=== PATIENT | male | born 1955 | race Caucasian/White ===

== ENCOUNTER 2019-04-26 07:43 | Day surgery (SDC) | payer BC ==
[~2019-04-26] VITALS: Ht 180.3 cm; Wt 97.6 kg
[~2019-04-26 07:43] MED LIST: ASPI325 PO; ATEN25; Aspirin EC81 MG PO; Cinnamon500 MG PO; EFFIENT10 MG PO; Glucotrol10 MG PO; LOVA40 PO; METO25ER PO; METO50ER PO; OLME20; OLME20 PO; OLME5TAB PO; PIOG15; PIOG45 PO; TORSE20 PO; TRULICITY0.75 MG/0. SQ; Travatan Z5 ML BOTHEYES; janumet
[2019-04-26] MEDS ORDERED: CLOP75 (08:21)
== END 2019-04-26 10:08 | disposition home or self-care (01) ==
LOC: ORSCSDS 07:43
PROVIDERS: Internal Medicine Gastroenterology
PROC: 0DBL8ZX Excision of Transverse Colon, Via Natural or Artificial Opening Endoscopic, Diagnostic (ICD-10-PCS; principal; 2019-04-26 09:00)
DX: Z12.11 Encounter for screening for malignant neoplasm of colon (principal); Z86.010 Personal history of colon polyps; D12.3 Benign neoplasm of transverse colon; K57.30 Diverticulosis of large intestine without perforation or abscess without bleeding; K64.8 Other hemorrhoids; I10 Essential (primary) hypertension; E11.9 Type 2 diabetes mellitus without complications; Z79.899 Other long term (current) drug therapy; Z79.82 Long term (current) use of aspirin
CPT/HCPCS: 82947; 88305; J2405; J2704; J7120

== ENCOUNTER → 2019-11-12 | Outpatient (CLI) | payer BC, OTHER ==
[~2019-11-12] MED LIST changes: +CLOP75
== END | disposition home or self-care (01) ==
LOC: LAB 06:05 → LAB SHORT 06:05
DX: Z01.812 Encounter for preprocedural laboratory examination (principal); Z11.59 Encounter for screening for other viral diseases
CPT/HCPCS: U0002

== ENCOUNTER → 2021-05-24 | Outpatient (CLI) | payer BC | END | disposition home or self-care (01) | LOC: LAB SHORT 11:22 | DX: D23.5 Other benign neoplasm of skin of trunk (principal) | CPT/HCPCS: 88305 ==

== ENCOUNTER 2022-06-03 07:21 | Observation (INO) | payer BC ==
[~2022-06-03] VITALS: Ht 180.3 cm; Wt 117.0 kg
[~2022-06-03 07:21] MED LIST changes: -Aspirin EC81 MG PO; -CLOP75; -Glucotrol10 MG PO; -OLME5TAB PO; -PIOG45 PO; -TORSE20 PO; -TRULICITY0.75 MG/0. SQ
[2022-06-03 07:55] LABS: BASOPHILS ABSOLUTE AUTO 0.06 K/mm3 (0.00-0.23); BASOPHILS PERCENT AUTO 1 % (0-2); EOSINOPHILS ABSOLUTE AUTO 0.07 K/mm3 (0.00-0.68); EOSINOPHILS PERCENT AUTO 1 % (0-6); Hematocrit 43.5 % (37.0-53.0); Hemoglobin 15.6 g/dL (13.5-17.5); IMMATURE GRAN ABSOLUTE AUTO 0.01 K/mm3 (0.00-0.10); IMMATURE GRAN PERCENT AUTO 0 % (0-1); LYMPHOCYTES ABSOLUTE AUTO 1.29 K/mm3 (0.84-5.20); LYMPHOCYTES PERCENT AUTO 24 % (21-46); MONOCYTES ABSOLUTE AUTO 0.37 K/mm3 (0.16-1.47); MONOCYTES PERCENT AUTO 7 % (4-13); Mean Corpuscular HGB 32.1 pg (26.0-34.0); Mean Corpuscular HGB Conc 35.9 g/dL (31.5-36.5); Mean Corpuscular Volume 90 fL (80-100); Mean Platelet Volume 9.7 fL (9.1-12.4); NEUTROPHILS ABSOLUTE AUTO 3.66 K/mm3 (1.96-9.15); NEUTROPHILS PERCENT AUTO 67 % (41-73); Platelet Count 172 K/mm3 (150-400); RDW Coefficient Variation 11.9 % (11.7-14.2); Red Blood Cell Count 4.86 M/mm3 (4.30-5.90); White Blood Cell Count 5.46 K/mm3 (4.00-11.30)
[2022-06-03 08:14] LABS: Albumin, Blood 3.5 g/dL (3.4-5.0); Albumin/Globulin Ratio 0.9 (0.8-1.8); Bilirubin, Total 0.8 mg/dL (0.1-1.0); Bun/Creatinine Ratio 17.6 (12.0-20.0); Calcium, Blood 8.9 mg/dL (8.5-10.1); Creatinine, Blood 1.48 mg/dL (0.60-1.20); Globulin, Blood 3.7 g/dL (2.2-4.0); Potassium, Blood 5.7 mmol/L (3.5-5.5); Total Protein, Blood 7.2 g/dL (6.4-8.2)
[2022-06-03] MEDS ORDERED: OLME20 PO (18:52)
[2022-06-03] MEDS ORDERED: TRULICITY0.75 MG/01 SC (18:52)
[2022-06-03] MEDS ORDERED: CLOP75 PO (18:53)
[2022-06-03] MEDS ORDERED: PIOG45 PO (18:53)
[2022-06-03] MEDS ORDERED: ROSUVASTATIN CAL5 MG PO (18:53)
[2022-06-03] MEDS ORDERED: GLIP5 PO (18:53)
[2022-06-03] MEDS ORDERED: TORSE20 PO (18:54)
[2022-06-03] MEDS ORDERED: Aspirin EC81 MG PO (18:54)
--- NOTE | 2022-06-03 19:11 | NUR ---
LATE ENTRY/ED ADMIT 1744: RECEIVED REPORT FROM ED RN. 1814: RECEIVED PT FROM ER TO ROOM 324. PLACED IN BED, MADE COMFORTABLE, ORIENTED TO ROOM AND UNIT ROUTINE. DR. CROSS HERE TO S/W PT. CALL LIGHT WITHIHN REACH. PT A&O X 4, PLEASANT & COOPERATIVE. C/O MILD DIZZINESS. IS ABLE TO STAND FOR STANDING WEIGHT. VSS. DENIES PAIN, DISCOMFORT & SOB.
[2022-06-03 19:21] LABS: Bun/Creatinine Ratio 18.5 (12.0-20.0); Calcium, Blood 8.8 mg/dL (8.5-10.1); Creatinine, Blood 1.3 mg/dL (0.60-1.20); Potassium, Blood 3.8 mmol/L (3.5-5.5)
[2022-06-04 05:30] LABS: BASOPHILS ABSOLUTE AUTO 0.05 K/mm3 (0.00-0.23); BASOPHILS PERCENT AUTO 1 % (0-2); EOSINOPHILS ABSOLUTE AUTO 0.21 K/mm3 (0.00-0.68); EOSINOPHILS PERCENT AUTO 4 % (0-6); Hematocrit 37.7 % (37.0-53.0); Hemoglobin 13.4 g/dL (13.5-17.5); IMMATURE GRAN ABSOLUTE AUTO 0.01 K/mm3 (0.00-0.10); IMMATURE GRAN PERCENT AUTO 0 % (0-1); LYMPHOCYTES ABSOLUTE AUTO 1.59 K/mm3 (0.84-5.20); LYMPHOCYTES PERCENT AUTO 32 % (21-46); MONOCYTES ABSOLUTE AUTO 0.56 K/mm3 (0.16-1.47); MONOCYTES PERCENT AUTO 11 % (4-13); Mean Corpuscular HGB 32.4 pg (26.0-34.0); Mean Corpuscular HGB Conc 35.5 g/dL (31.5-36.5); Mean Corpuscular Volume 91 fL (80-100); Mean Platelet Volume 9.7 fL (9.1-12.4); NEUTROPHILS ABSOLUTE AUTO 2.59 K/mm3 (1.96-9.15); NEUTROPHILS PERCENT AUTO 52 % (41-73); Platelet Count 159 K/mm3 (150-400); RDW Coefficient Variation 12.3 % (11.7-14.2); RDW Standard Deviation 40.7 fL (35.1-46.3); Red Blood Cell Count 4.13 M/mm3 (4.30-5.90); White Blood Cell Count 5.01 K/mm3 (4.00-11.30)
[2022-06-04 06:03] LABS: Albumin, Blood 2.8 g/dL (3.4-5.0); Albumin/Globulin Ratio 0.9 (0.8-1.8); Bilirubin, Total 0.9 mg/dL (0.1-1.0); Calcium, Blood 8.1 mg/dL (8.5-10.1); Creatinine, Blood 1.33 mg/dL (0.60-1.20); Potassium, Blood 4.1 mmol/L (3.5-5.5); Total Protein, Blood 5.8 g/dL (6.4-8.2)
--- NOTE | 2022-06-04 07:31 | NUR ---
PATIENT IS ALERT AND OREINTED X4, CALM AND COOPERATIVE WITH CARE, CALLS TO MAKE NEEDS KNOWN. IV INFUSING THROUGHOUT THE NIGHT, NO CARDIAC OR RESPIRATORY ISSUES TO REPORT. 1X ASSIST WITH GAIT BELT HE IS DIZZY WHEN AMBULATING AND REPORTS MULTI FALLS LAST YEAR WITH NO ETIOLOGY. CONT WITH GOOD UO. NO OTHER ISSUES TO REPORT.
[2022-06-04] MEDS ORDERED: MECL25 PO (15:10)
--- NOTE | 2022-06-04 15:59 | NUR ---
Received report from ongoing nurse. Pt resting comfortably in bed. VSS. Will continue to monitor. PT at bedside. Discharge orders placed. Instructions given. Pt son at bedside. Walked pt to son vehicle he refused a wheel chair.
== END 2022-06-04 16:08 | disposition home or self-care (01) ==
LOC: ER 07:21 → MEDS 14:54
PROVIDERS: Student in an Organized Health Care Education/Training Program; ADMIT Internal Medicine
DX: R42 Dizziness and giddiness (principal); N17.9 Acute kidney failure, unspecified; I12.9 Hypertensive chronic kidney disease with stage 1 through stage 4 chronic kidney disease, or unspecified chronic kidney disease; E11.22 Type 2 diabetes mellitus with diabetic chronic kidney disease; N18.30 Chronic kidney disease, stage 3 unspecified; E78.5 Hyperlipidemia, unspecified; I25.10 Atherosclerotic heart disease of native coronary artery without angina pectoris; E87.5 Hyperkalemia; H61.23 Impacted cerumen, bilateral; Z88.8 Allergy status to other drugs, medicaments and biological substances
CPT/HCPCS: 36415; 70551; 71045; 80048; 80053; 82947; 83880; 84484; 85025; 94644; 94664; 97112; 97161; A9270; J1815; J7030; J7799

== ENCOUNTER 2024-08-07 07:14 | Day surgery (SDC) | payer BC ==
[~2024-08-07] VITALS: Ht 180.3 cm; Wt 105.2 kg
[~2024-08-07 07:14] MED LIST changes: +Aspirin EC81 MG PO; +CLOP75 PO; +GLIP5 PO; +MECL25 PO; +PIOG45 PO; +ROSUVASTATIN CAL5 MG PO; +TORSE20 PO; +TRULICITY0.75 MG/01 SC
[2024-08-07] MEDS ORDERED: OZEMPIC2 MG/0.75 (07:41)
[2024-08-07] MEDS ORDERED: Lactated Ringer's 1,000 ML IV ONE (08:31)
[2024-08-07] MEDS ORDERED: Lidocaine HCl/Pf 1% 5 ML VIAL ONE (08:39)
[2024-08-07] MEDS ORDERED: propofoL 50 ML IV ONE (08:44)
[2024-08-07] MEDS ORDERED: ePHEDrine Sulfate 50 MG/ML 1ML Injection ONE (09:44)
--- NOTE | 2024-08-07 09:47 | NUR ---
08/07/24 0947 GOLDIE HARDIN IV ISSUE 5X ATTEMPTS START FINAL AT ACL.END NOTE RDS
[2024-08-07] MEDS ORDERED: NS 500 ML IV ONE (10:01)
[2024-08-07 10:59] VITALS: BP 112/68
== END 2024-08-07 10:48 | disposition home or self-care (01) ==
LOC: ORSCSDS 07:14
PROVIDERS: Internal Medicine Gastroenterology
PROC: 0DBL8ZX Excision of Transverse Colon, Via Natural or Artificial Opening Endoscopic, Diagnostic (ICD-10-PCS; principal; 2024-08-07 09:00)
PROC: 0DBK8ZX Excision of Ascending Colon, Via Natural or Artificial Opening Endoscopic, Diagnostic (ICD-10-PCS; principal; 2024-08-07 09:00)
DX: Z12.11 Encounter for screening for malignant neoplasm of colon (principal); Z86.0101 Personal history of adenomatous and serrated colon polyps; D12.2 Benign neoplasm of ascending colon; D12.3 Benign neoplasm of transverse colon; K64.8 Other hemorrhoids; I25.10 Atherosclerotic heart disease of native coronary artery without angina pectoris; E11.22 Type 2 diabetes mellitus with diabetic chronic kidney disease; I12.9 Hypertensive chronic kidney disease with stage 1 through stage 4 chronic kidney disease, or unspecified chronic kidney disease; N18.30 Chronic kidney disease, stage 3 unspecified; E11.21 Type 2 diabetes mellitus with diabetic nephropathy; Z79.84 Long term (current) use of oral hypoglycemic drugs; Z79.899 Other long term (current) drug therapy; Z79.02 Long term (current) use of antithrombotics/antiplatelets; Z79.85 Long-term (current) use of injectable non-insulin antidiabetic drugs; Z87.891 Personal history of nicotine dependence
CPT/HCPCS: 82947; 88305; J2003; J2704; J7040